=== PATIENT | male | born 1960 | race African-American/Black ===

== ENCOUNTER 2022-08-05 04:26 | Inpatient (IN) | payer OTHER ==
[2022-07-31 12:39] VITALS: BMI 24.5
[2022-08-05] MEDS ORDERED: ERTAPENEM SODIUM 1 GM in SODIUM CHLORIDE 50 ML IVPB ONE (07:00)
[2022-08-05] MEDS ORDERED: ALVIMOPAN 12 MG CAP PO ONE (07:00)
[2022-08-05] MEDS ORDERED: INDOCYANINE GREEN 25 MG/10 ML VIAL IVPUSH ONE (14:40)
[2022-08-05] MEDS ORDERED: HEPARIN NA (PORCINE) 5,000 UNITS/ML 1ML VIAL ONE (14:40)
[2022-08-05] MEDS ORDERED: ROCURONIUM BROMIDE 50 MG/5 ML SYRINGE ONE ×2 (15:02→15:52)
[2022-08-05] MEDS ORDERED: PROPOFOL 20 ML ONE (15:03)
[2022-08-05] MEDS ORDERED: MIDAZOLAM HCL 2 MG/2 ML SINGLE DOSE VIAL ONE (15:03)
[2022-08-05] MEDS ORDERED: LIDOCAINE HCL/PF 2% SDV 5ML VIAL ONE (15:08)
[2022-08-05] MEDS ORDERED: cefOXitin SODIUM 2 GM VIAL (RESTRICTED TO ID) IVPB ONE (15:10)
[2022-08-05] MEDS ORDERED: DEXAMETHASONE SOD PHOSPHATE 4 MG/1 ML VIAL ONE (15:27)
[2022-08-05] MEDS ORDERED: HYDROmorphone HCl 2 MG/ML VIAL ONE (15:53)
[2022-08-05] MEDS ORDERED: BUPIVACAINE HCL/PF 0.25% (2.5MG/ML) 10 ML VIAL IJ ONE (15:58)
[2022-08-05] MEDS ORDERED: NEOSTIGMINE METHYLSULFATE 0.5 MG/1 ML - 10 ML MDV ONE (16:47)
[2022-08-05] MEDS ORDERED: KETOROLAC TROMETHAMINE 30 MG/1 ML VIAL ONE (16:48)
[2022-08-05] MEDS ORDERED: ONDANSETRON 4 MG/2 ML VIAL ONE (16:48)
[2022-08-05] MEDS ORDERED: VECURONIUM BROMIDE 10 MG/10 ML VIAL ONE (19:05)
[2022-08-05] MEDS ORDERED: oxyCODONE HCL 5 MG TABLET PO PRN ×3 (19:46→20:23)
[2022-08-05] MEDS ORDERED: ACETAMINOPHEN 1000 MG/100 ML BAG IVPB PRN (19:46)
[2022-08-05] MEDS ORDERED: ONDANSETRON 4 MG/2 ML VIAL IVPUSH PRN (20:20)
[2022-08-05] MEDS ORDERED: ACETAMINOPHEN 1000 MG/100 ML BAG IVPB ONE (20:23)
[2022-08-05] MEDS ORDERED: LACTATED RINGERS SOLUTION 1,000 ML IV SCH (20:30)
[2022-08-05] MEDS ORDERED: ACETAMINOPHEN INJECTION 100 ML IVPB ONE (20:30)
[2022-08-05] MEDS: SODIUM CHLORIDE 1,000 ML IV SCH (22:00)
[2022-08-06] MEDS: CEFOXITIN SODIUM 1 GM in DEXTROSE 5%-WATER 100 ML IVPB SCH ×2 (02:32→11:43)
[2022-08-06] MEDS: KETOROLAC TROMETHAMINE 30 MG/1 ML VIAL IVPUSH SCH ×2 (02:34→02:42)
[2022-08-06] MEDS: oxyCODONE HCL 10 MG SUSTAINED ACTING TABLET PO SCH ×3 (05:05→21:21)
[2022-08-06 09:31] LABS: BASO % 0.3 % (0-2.0); EOS % 0.1 % (0-4.5); HEMOGLOBIN 8.2 GM/dL (11.7-16.9); LYMPH % 10.8 % (8-40); MCH 21.8 pg (25.7-33.7); MCHC 31.4 g/dl (32.0-35.9); MEAN CELL VOLUME 69.6 fl (80-96); MEAN PLT VOLUME 8.1 fl (7.5-11.1); MONO % 10.6 % (3.8-10.2); NEUT % 78.2 % (42.8-82.8); PLATELET COUNT 491 10^3/uL (134-434); RBC 3.74 M/mm3 (4.00-5.60); RDW 17.2 % (11.9-15.9); WHITE BLOOD COUNT 10.9 K/mm3 (4.0-10.0)
[2022-08-06 09:55] LABS: ALBUMIN 2.8 g/dl (3.4-5.0); CALCIUM 8.2 mg/dL (8.5-10.1); CHOLESTEROL 194 mg/dL (50-200)
[2022-08-06 09:56] LABS: BLOOD UREA NITROGEN 12.6 mg/dL (7-18); LDL CHOLESTEROL (ONLY SJRH) 108 mg/dL (5-100); TRIGLYCERIDES 74 mg/dL (0-150)
[2022-08-06 09:58] LABS: CREATININE 0.9 mg/dL (0.55-1.3); HDL CHOLESTEROL 70 mg/dL (40-60)
[2022-08-06 10:00] LABS: BILIRUBIN,TOTAL 0.3 mg/dL (0.2-1); TOT PROT 5.6 g/dl (6.4-8.2)
[2022-08-06] MEDS ORDERED: ENOXAPARIN NA (PORCINE) 40 MG/0.4 ML DISP.SYRIN SQ SCH (10:00)
[2022-08-06] MEDS: HEPARIN NA (PORCINE) 5,000 UNITS/ML 1ML VIAL SQ SCH ×2 (10:00→21:22)
[2022-08-06] MEDS: ALVIMOPAN 12 MG CAP PO SCH ×2 (10:09→23:59)
[2022-08-06 11:45] LABS: MAGNESIUM 1.9 mg/dL (1.8-2.4)
[2022-08-06 11:48] LABS: PHOSPHOROUS 3.1 mg/dL (2.5-4.9)
[2022-08-06] MEDS: oxyCODONE HCL 5 MG TABLET PO PRN (19:15)
[2022-08-06] MEDS: SODIUM CHLORIDE 1,000 ML IV SCH (21:21)
[2022-08-07] MEDS ORDERED: ACETAMINOPHEN 1000 MG/100 ML BAG IVPB PRN (08:22)
[2022-08-07 09:29] LABS: HEMOGLOBIN 8.2 GM/dL (11.7-16.9); MCH 22.1 pg (25.7-33.7); MCHC 31.6 g/dl (32.0-35.9); MEAN CELL VOLUME 70.1 fl (80-96); MEAN PLT VOLUME 8.1 fl (7.5-11.1); MONO % 10.3 % (3.8-10.2); NEUT % 69.7 % (42.8-82.8); PLATELET COUNT 486 10^3/uL (134-434); RBC 3.72 M/mm3 (4.00-5.60); RDW 17.2 % (11.9-15.9); WHITE BLOOD COUNT 6.3 K/mm3 (4.0-10.0)
[2022-08-07] MEDS: oxyCODONE HCL 10 MG SUSTAINED ACTING TABLET PO SCH ×2 (09:43→22:00)
[2022-08-07 09:44] LABS: CALCIUM 8.4 mg/dL (8.5-10.1)
[2022-08-07] MEDS: ALVIMOPAN 12 MG CAP PO SCH ×2 (09:44→23:53)
[2022-08-07] MEDS: HEPARIN NA (PORCINE) 5,000 UNITS/ML 1ML VIAL SQ SCH ×2 (09:44→21:59)
[2022-08-07 09:45] LABS: BLOOD UREA NITROGEN 9.7 mg/dL (7-18); MAGNESIUM 2.1 mg/dL (1.8-2.4)
[2022-08-07 09:48] LABS: CREATININE 0.8 mg/dL (0.55-1.3)
[2022-08-07 09:49] LABS: BILIRUBIN,TOTAL 0.4 mg/dL (0.2-1); TOT PROT 5.9 g/dl (6.4-8.2)
[2022-08-07] MEDS: SODIUM CHLORIDE 1,000 ML IV SCH (23:56)
[2022-08-08 09:27] LABS: BASO % 1.5 % (0-2.0); EOS % 3.7 % (0-4.5); HEMATOCRIT 26.9 % (35.4-49); HEMOGLOBIN 8.3 GM/dL (11.7-16.9); LYMPH % 29.2 % (8-40); MCH 21.6 pg (25.7-33.7); MCHC 30.7 g/dl (32.0-35.9); MEAN CELL VOLUME 70.2 fl (80-96); MEAN PLT VOLUME 8.6 fl (7.5-11.1); MONO % 11.1 % (3.8-10.2); NEUT % 54.5 % (42.8-82.8); PLATELET COUNT 524 10^3/uL (134-434); RBC 3.83 M/mm3 (4.00-5.60); RDW 17.5 % (11.9-15.9); WHITE BLOOD COUNT 5.4 K/mm3 (4.0-10.0)
[2022-08-08 09:48] LABS: ALBUMIN 2.9 g/dl (3.4-5.0)
[2022-08-08 09:49] LABS: BLOOD UREA NITROGEN 11.8 mg/dL (7-18); MAGNESIUM 2.1 mg/dL (1.8-2.4)
[2022-08-08] MEDS: ALVIMOPAN 12 MG CAP PO SCH (09:49)
[2022-08-08] MEDS: HEPARIN NA (PORCINE) 5,000 UNITS/ML 1ML VIAL SQ SCH ×2 (09:50→22:25)
[2022-08-08 09:53] LABS: BILIRUBIN,TOTAL 0.3 mg/dL (0.2-1)
[2022-08-08 09:56] LABS: CREATININE 0.7 mg/dL (0.55-1.3)
[2022-08-08 09:57] LABS: TOT PROT 5.9 g/dl (6.4-8.2)
[2022-08-08 15:13] VITALS: TEMP 98.9
[2022-08-08] MEDS: oxyCODONE HCL 5 MG TABLET PO PRN ×2 (15:43→22:27)
[2022-08-08 22:40] VITALS: RESP 18
[2022-08-09 09:10] VITALS: BP 133/66; PULSE 78
[2022-08-09 09:10] LABS: MAGNESIUM 2.1 mg/dL (1.8-2.4)
[2022-08-09] MEDS: HEPARIN NA (PORCINE) 5,000 UNITS/ML 1ML VIAL SQ SCH (09:49)
== END 2022-08-09 15:19 | disposition home health service (06) | DRG 221 ==
LOC: J2C 04:26 → J8W 23:28
PROVIDERS: ADMIT Internal Medicine; ATTEND Nurse Practitioner Acute Care
PROC: 0T9B80Z Drainage of Bladder with Drainage Device, Via Natural or Artificial Opening Endoscopic (ICD-10-PCS; 2022-08-05)
PROC: 0DBN4ZZ Excision of Sigmoid Colon, Percutaneous Endoscopic Approach (ICD-10-PCS; principal; 2022-08-05 13:15)
PROC: 0DJD8ZZ Inspection of Lower Intestinal Tract, Via Natural or Artificial Opening Endoscopic (ICD-10-PCS; 2022-08-05 13:15)
PROC: 0T788DZ Dilation of Bilateral Ureters with Intraluminal Device, Via Natural or Artificial Opening Endoscopic (ICD-10-PCS; 2022-08-05 13:15)
DX: C18.7 Malignant neoplasm of sigmoid colon (principal); C78.00 Secondary malignant neoplasm of unspecified lung; C78.7 Secondary malignant neoplasm of liver and intrahepatic bile duct; K91.89 Other postprocedural complications and disorders of digestive system; K56.7 Ileus, unspecified; Y83.9 Surgical procedure, unspecified as the cause of abnormal reaction of the patient, or of later complication, without mention of misadventure at the time of the procedure
CPT/HCPCS: 36415; 80053; 80061; 82728; 83036; 83540; 83550; 83735; 84100; 84443; 85025; 86140; 86850; 86900; 86901; 88305-TC; 88307-TC; 88309-TC; 94760; 97116-GP; 97161-GP; C9803-CS; J1644; U0003; U0005